=== PATIENT | female | born 1945 | race Caucasian/White ===

== ENCOUNTER 2016-10-27 08:28 | Day surgery (SDC) | payer MEDICARE, OTHER ==
--- NOTE | ~2016-10-27 | EGD ---
EGD REPORT [facility] [address] [place] [address] NAME: MARCUS HART : [birth year] STATUS : REG [facility]#: [id number] AGE: 71 ADM/REG DATE : 10/27/16 MR#: [id number] REPORT SERV DATE: 10/27/16 DICTATED BY: PRAVEEN PENNY DATE: 10/27/16 REPORT STATUS : Draft TRANSCRIBED BY: [employer] DATE: 10/27/16 [facility] Patient Name: Marcus Hart Date of : 1945 Attending MD: PRAVEEN PENNY, Procedure Date No Time: 10/27/2016 Procedure: Colonoscopy Indications: Chronic diarrhea Referring MD: Praveen Delgado Medicines: Monitored Anesthesia Care Complications: No immediate complications. Estimated blood loss: None. Procedure: Pre-Anesthesia Assessment: - ASA Grade Assessment: III - A patient with severe systemic disease. After I obtained informed consent, the scope was passed under direct vision. Throughout the procedure, the patient's blood pressure, pulse, and oxygen saturations were monitored continuously. The CF [id number] was introduced through the anus and advanced to the ileocolonic anastomosis. The colonoscopy was performed without difficulty. The patient tolerated the procedure well. The quality of the bowel preparation was adequate. Findings: The perianal and digital rectal examinations were normal. There was evidence of a prior [id number]-[id number]-cdky ileo-colonic anastomosis in the ascending colon. This was characterized by healthy appearing mucosa. Normal mucosa was found in the entire colon. Biopsies were taken with a cold forceps for histology. Verification of patient identification for the specimen was done. Estimated blood loss was minimal. A sessile polyp was found in the rectum. The polyp was 5 mm in size. The polyp was removed with a cold biopsy forceps. Resection and retrieval were complete. Verification of patient identification for the specimen was done. Estimated blood loss was minimal. The exam was otherwise without abnormality. Impression: - Ovfp-vd-ivgd ileo-colonic anastomosis. - Normal mucosa in the entire examined colon. Biopsied. - One 5 mm polyp in the rectum. Resected and retrieved. - The examination was otherwise normal. Recommendation: - Patient has a contact number available for emergencies. The signs and symptoms of potential delayed complications were discussed with the patient. Return to normal activities tomorrow. Written discharge EGD REPORT [place] [id number] [place]. [address] NAME: MARCUS HART : [birth year] STATUS : REG [facility]#: [id number] AGE: 71 ADM/REG DATE : 10/27/16 MR#: [id number] REPORT SERV DATE: 10/27/16 DICTATED BY: PRAVEEN PENNY DATE: 10/27/16 REPORT STATUS : Draft TRANSCRIBED BY: [email or web address] DATE: 10/27/16 instructions were provided to the patient. - Return to previous diet. - Continue present medications. - Await pathology results. - Repeat colonoscopy for surveillance based on pathology results. Procedure Code(s): --- Professional --- 81766, Colonoscopy, flexible, proximal to splenic flexure; with biopsy, single or multiple Diagnosis Code(s): --- Professional --- Z98.0, Intestinal bypass and anastomosis status K62.1, Rectal polyp K52.9, Noninfective gastroenteritis and colitis, unspecified CPT copyright 2013 [employer]. All rights reserved. The codes documented in this report are preliminary and upon nurse educator review may be revised to meet current compliance requirements. PRAVEEN PENNY, 10/27/2016 11:31 AM Number of Addenda: 0 Note Initiated On: 10/27/2016 10:31 AM Scope Withdrawal Time 0 hours 10 minutes 9 seconds [id number] [id number]
--- NOTE | ~2016-10-27 | EGD ---
EGD REPORT [facility] [address] [place] [address] NAME: MARCUS HART : [birth year] STATUS : REG [facility] PAT#: [id number] AGE: 71 ADM/REG DATE : 10/27/16 MR#: [id number] REPORT SERV DATE: 10/27/16 DICTATED BY: PRAVEEN PENNY DATE: 10/27/16 REPORT STATUS : Draft TRANSCRIBED BY: [employer] DATE: 10/27/16 [facility] Patient Name: Marcus Hart. Date of : 1945 Attending MD: PRAVEEN PENNY, Procedure Date No Time: 10/27/2016 Procedure: Upper EUS Indications: Lymphadenopathy on CT scan Referring MD: Praveen Delgado Medicines: Monitored Anesthesia Care Procedure: Pre-Anesthesia Assessment: - ASA Grade Assessment: III - A patient with severe systemic disease. After obtaining informed consent, the endoscope was passed under direct vision. Throughout the procedure, the patient's blood pressure, pulse, and oxygen saturations were monitored continuously. The Endoscope was introduced through the mouth, and advanced to the second part of duodenum. The GIF [id number] was introduced through the mouth, and advanced to the second part of duodenum. Findings: Endoscopic Finding : The examined esophagus was endoscopically normal. Patchy moderate inflammation characterized by erosions and erythema was found in the gastric antrum. Biopsies were taken with a cold forceps for histology. Verification of patient identification for the specimen was done. Estimated blood loss was minimal. The exam of the stomach was otherwise normal. The cardia and gastric fundus were normal on retroflexion. The examined duodenum was endoscopically normal. Endosonographic Finding : One enlarged lymph node was visualized in the peripancreatic region. It measured 16 mm by 15 mm in maximal cross-sectional diameter. The node was round and hypoechoic. Fine needle aspiration was performed. Color Doppler imaging was utilized prior to needle puncture to confirm a lack of significant vascular structures within the needle path. Two passes were made with the 22 gauge needle using a transduodenal approach. This node was difficult to approximate with the needle due to its location. There was no sign of significant endosonographic abnormality in the common bile duct. There was no sign of significant endosonographic abnormality in the entire pancreas. The pancreas was well visualized, no pathologic lymphadenopathy, no masses, the pancreatic duct was regular in contour. A round mass was identified endosonographically in the left adrenal EGD REPORT [place] [id number] [facility]. [address] NAME: MARCUS HART : [birth year] STATUS : REG [facility] PAT#: [id number] AGE: 71 ADM/REG DATE : 10/27/16 MR#: [id number] REPORT SERV DATE: 10/27/16 DICTATED BY: PRAVEEN PENNY DATE: 10/27/16 REPORT STATUS : Draft TRANSCRIBED BY: [employer] DATE: 10/27/16 gland. The mass measured 29 mm. There was no sign of significant endosonographic abnormality in the examined duodenum. Endosonographic images of the stomach were unremarkable. There was no sign of significant endosonographic abnormality in the esophagus. Impression: - Normal esophagus. - Gastritis. Biopsied. - Normal examined duodenum. - One enlarged lymph node was visualized in the peripancreatic region. - There was no sign of significant pathology in the common bile duct. - There was no sign of significant pathology in the entire pancreas. - A mass measuring 29 mm was identified endosonographically in the left adrenal gland. - There was no sign of significant pathology in the examined duodenum. - Endosonographic images of the stomach were unremarkable. - There was no sign of significant pathology in the esophagus. Recommendation: - Return to previous diet. - Continue present medications. - Await cytology results and await path results. Procedure Code(s): --- Professional --- 51435, Esophagogastroduodenoscopy, flexible, transoral; with transendoscopic ultrasound-guided intramural or transmural fine needle aspiration/biopsy(s) (includes endoscopic ultrasound examination of the esophagus, stomach, and either the duodenum or a surgically altered stomach where the jejunum is examined distal to the anastomosis) Diagnosis Code(s): --- Professional --- E27.8, Other specified disorders of adrenal gland K29.70, Gastritis, unspecified, without bleeding R59.0, Localized enlarged lymph nodes R59.1, Generalized enlarged lymph nodes CPT copyright 2013 [employer]. All rights reserved. EGD REPORT [facility] [address] [address] NAME: MARCUS HART : [birth year] STATUS : REG [facility]#: [id number] AGE: 71 ADM/REG DATE : 10/27/16 MR#: [id number] REPORT SERV DATE: 10/27/16 DICTATED BY: PRAVEEN PENNY DATE: 10/27/16 REPORT STATUS : Draft TRANSCRIBED BY: [employer] DATE: 10/27/16 The codes documented in this report are preliminary and upon coder operator review may be revised to meet current compliance requirements. PRAVEEN PENNY, 10/27/2016 11:29 AM Number of Addenda: 0 Note Initiated On: 10/27/2016 10:32 AM Scope Withdrawal Time 0 hours 0 minutes 0 seconds [id number] [id number]
[~2016-10-27 08:28] MED LIST: ALEVE220 MG PO; AMARYL4 PO; CALTRAT600 PO; COQ-10200 MG PO; ESTER-C PO; FORTAMET1000 MG PO; FORTAMET500 MG PO; GLUCPH; L80 PO; LANTUS SC; LIPITOR40 PO; MAG OXIDE250 MG PO; POTASSIUM CITR10 ME1 PO; VITD PO
[2016-10-27 09:08] LABS: BUN (BLOOD UREA NITROGEN) 14 MG/DL (6-23); CALCIUM, SERUM 9.1 MG/DL (8.5-10.4); CHLORIDE, SERUM 103 MMOL/L (96-112); CO2 (CARBON DIOXIDE) 30 MMOL/L (24-34); CREATININE 1.04 MG/DL (0.55-1.02); GFR AFRICAN AMERICAN 63 ML/MIN (>=60); GFR NON AFRICAN AMERICAN 54 ML/MIN (>=60); GLUCOSE, SERUM 199 MG/DL (60-99); POTASSIUM, SERUM 3.7 MMOL/L (3.5-5.3); SODIUM, SERUM 142 MMOL/L (135-148)
== END 2016-10-27 23:59 | disposition home or self-care (01) ==
LOC: DMU 08:28
PROVIDERS: Anesthesiology; Internal Medicine Gastroenterology
PROC: 0DBE8ZX Excision of Large Intestine, Via Natural or Artificial Opening Endoscopic, Diagnostic (ICD-10-PCS; principal; 2016-10-27 10:30)
PROC: 0DBP8ZZ Excision of Rectum, Via Natural or Artificial Opening Endoscopic (ICD-10-PCS; 2016-10-27 10:30)
DX: K62.1 Rectal polyp (principal); C7A.8 Other malignant neuroendocrine tumors; K52.9 Noninfective gastroenteritis and colitis, unspecified; E27.8 Other specified disorders of adrenal gland; K29.50 Unspecified chronic gastritis without bleeding; E11.9 Type 2 diabetes mellitus without complications; E89.0 Postprocedural hypothyroidism; Z88.2 Allergy status to sulfonamides; Z79.4 Long term (current) use of insulin; Z98.0 Intestinal bypass and anastomosis status; Z79.1 Long term (current) use of non-steroidal anti-inflammatories (NSAID); Z79.899 Other long term (current) drug therapy
CPT/HCPCS: 80048; 87493; 87493-59; 88173; 88305; 88342; 88360; C1725